=== PATIENT | male | born 1950 | race Asian ===

== ENCOUNTER 2024-01-04 07:46 | Day surgery (SDC) | payer OTHER ==
[2024-01-02 10:03] VITALS: BMI 24.3
[2024-01-04] MEDS ORDERED: CARBACHOL 0.01% INTRA-OCULAR 1.5 ML VIAL ONE (08:23)
[2024-01-04] MEDS ORDERED: EPINEPHrine/PF 1 MG/1 ML (1:1,000) AMPULE ONE (08:23)
[2024-01-04] MEDS ORDERED: TETRACAINE 0.5% OPHTH SOLN 2 ML BOTTLE ONE (08:23)
[2024-01-04] MEDS ORDERED: NEO/POLYMYX B SULF/DEXAMETH OPHTHALMIC 5ML BOTTLE ONE (08:23)
[2024-01-04] MEDS ORDERED: LIDOCAINE 1% P/F 10 MG/ML VIAL ONE (08:23)
[2024-01-04] MEDS ORDERED: BSS (NA/CA/MG/K) BALANCED SALT SOLUTION OPHTH SOLN 15 ML BOTTLE ONE (08:23)
[2024-01-04] MEDS: PHENYLEPHRINE 2.5% OPTHALMIC DROP 2ML BOTTLE ONE (08:25)
[2024-01-04] MEDS: TROPICAMIDE 1% 3 ML EYE DROPS ONE (08:25)
[2024-01-04] MEDS: CIPROFLOXACIN 0.3% EYE DROPS 5 ML BOTTLE ONE (08:25)
[2024-01-04] MEDS: CYCLOPENTOLATE 2% OPHTH SOLN 2 ML BOTTLE ONE (08:25)
[2024-01-04 08:28] VITALS: TEMP 97.3
[2024-01-04] MEDS ORDERED: MIDAZOLAM HCL 2 MG/2 ML SINGLE DOSE VIAL ONE (10:23)
[2024-01-04 11:20] VITALS: BP 137/74; PULSE 78; RESP 18
== END 2024-01-04 11:26 | disposition home or self-care (01) ==
LOC: FASU 07:46
PROVIDERS: ATTEND Ophthalmology
PROC: 08RK3JZ Replacement of Left Lens with Synthetic Substitute, Percutaneous Approach (ICD-10-PCS; principal; 2024-01-04 10:31)
DX: H26.8 Other specified cataract (principal)
CPT/HCPCS: 66984; V2632; 82962